=== PATIENT | male | born 1960 | race Caucasian/White ===

== ENCOUNTER 2023-12-27 20:04 | Inpatient (IN) ==
[2023-12-27 20:54] LABS: Basophils # (Auto) 0.02 K/mcL (0.00-0.30); Basophils % (Auto) 0.1 % (0.0-2.0); Eosinophils # (Auto) 0 K/mcL (0.00-0.70); Eosinophils % (Auto) 0 % (0.0-7.0); Hematocrit 47.7 % (40.1-51.0); Hemoglobin 15.2 g/dL (13.7-17.5); Lymphocytes # (Auto) 1.71 K/mcL (1.50-4.80); Lymphocytes % (Auto) 9.4 % (15.5-49.0); Mean Cell Volume 83.2 fL (80.0-100.0); Mean Corpuscular HGB Conc 31.9 g/dL (31.0-36.0); Mean Platelet Volume 10.5 fL (8.8-12.5); Neutrophils % (Auto) 79.2 % (38.0-78.0); Platelet Count 397 K/mcL (140-440); RBC 5.73 M/mcL (4.63-6.08); Red Cell Distribution Width 17.8 % (11.5-14.5); WBC 18.2 K/mcL (4.5-11.0)
[2023-12-27 21:36] LABS: ALT/SGPT 39 U/L (<40); AST/SGOT 63 U/L (<40); Albumin 4.4 gm/dL (3.2-5.2); Albumin/Globulin Ratio 1.2 (1.0-2.3); Alkaline Phosphatase 107 U/L (39-117); Bilirubin,Total 0.8 mg/dL (0.1-1.0); Blood Urea Nitrogen 57 mg/dL (8-23); Calcium 9.4 mg/dL (8.6-10.4); Carbon Dioxide 24 mmol/L (22-30); Chloride 106 mmol/L (96-108); Globulin 3.6 gm/dL (2.2-3.7); Glomerular Filtration Rate 58; Glucose 108 mg/dL (70-105); Potassium 3.5 mmol/L (3.3-5.1); Sodium 148 mmol/L (133-145)
[2023-12-27 21:37] LABS: Thyroid Stimulating Hormone 1.43 uIU/mL (0.27-5.01)
[2023-12-27] MEDS: HALOPERIDOL LACTATE 5 MG/ML VIAL IV ONE (21:58)
[2023-12-27 22:22] LABS: Free T4 (Free Thyroxine) 1.43 ng/dL (0.93-1.70)
[2023-12-28] MEDS: HALOPERIDOL LACTATE 5 MG/ML VIAL IV ONE ×2 (00:08→03:30)
[2023-12-28] MEDS: HALOPERIDOL LACTATE 5 MG/ML VIAL ONE (00:08)
[2023-12-28 00:34] LABS: Alcohol, Blood < 10.1 mg/dL; Alcohol,Blood < 0.010 gm/dL (<0.010)
[2023-12-28 01:03] LABS: Amphetamine Screen,Urine None detected; Barbiturate Screen,Urine None detected; Benzodiazepines Screen,Urine None detected; Cannabinoid Screen,Urine Suspect Positive; Cocaine Screen,Urine None detected; Fentanyl, Urine Screen None Detected; Opiate Screen,Urine None detected; Oxycodone, Urine Screen None detected; Phencyclidine Screen,Urine None detected
[2023-12-28 01:41] LABS: Appearance,Urine CLEAR (Clear); Bilirubin,Urine Negative (Negative); Color,Urine YELLOW; Glucose,Urine (UA) Negative (Negative); Ketones,Urine 20 mg/dL (Negative); Leukocyte Esterase,Urine Negative /uL (Negative); Mucus,Urine FEW /hpf; Nitrate,Urine Negative (Negative); Protein,Urine 100 mg/dL (Negative); Specific Gravity,Urine > 1.060 (1.000-1.035); Urine RBC 4 /hpf (0-3); Urine Squamous Epithelial Cell < 1 /hpf (0-4); Urine WBC 4 /hpf (0-4); Urobilinogen,Urine Negative
[2023-12-28] MEDS: 0.9 % SODIUM CHLORIDE 1,000 ML IV ONE (02:07)
[2023-12-28] MEDS: 0.9 % SODIUM CHLORIDE 1,000 ML IV SCH (03:05)
[2023-12-28] MEDS: OLANZapine 10 MG VIAL IM SCH (03:43)
[2023-12-28 05:43] LABS: Basophils # (Auto) 0.02 K/mcL (0.00-0.30); Basophils % (Auto) 0.1 % (0.0-2.0); Eosinophils # (Auto) 0 K/mcL (0.00-0.70); Eosinophils % (Auto) 0 % (0.0-7.0); Hematocrit 43.8 % (40.1-51.0); Hemoglobin 13.6 g/dL (13.7-17.5); Lymphocytes # (Auto) 1.79 K/mcL (1.50-4.80); Lymphocytes % (Auto) 11.8 % (15.5-49.0); Mean Cell Volume 86.2 fL (80.0-100.0); Mean Corpuscular HGB Conc 31.1 g/dL (31.0-36.0); Mean Platelet Volume 11.2 fL (8.8-12.5); Monocytes # (Auto) 2.05 K/mcL (0.10-0.90); Monocytes % (Auto) 13.5 % (1.0-12.0); Neutrophils % (Auto) 74.3 % (38.0-78.0); Platelet Count 292 K/mcL (140-440); RBC 5.08 M/mcL (4.63-6.08); Red Cell Distribution Width 17.4 % (11.5-14.5); WBC 15.2 K/mcL (4.5-11.0)
[2023-12-28 06:26] LABS: ALT/SGPT 35 U/L (<40); AST/SGOT 61 U/L (<40); Albumin 3.6 gm/dL (3.2-5.2); Albumin/Globulin Ratio 1.2 (1.0-2.3); Alkaline Phosphatase 88 U/L (39-117); Bilirubin,Total 0.7 mg/dL (0.1-1.0); Blood Urea Nitrogen 46 mg/dL (8-23); Calcium 8.1 mg/dL (8.6-10.4); Carbon Dioxide 19 mmol/L (22-30); Chloride 115 mmol/L (96-108); Globulin 2.9 gm/dL (2.2-3.7); Glomerular Filtration Rate 80; Glucose 77 mg/dL (70-105); Potassium 3.8 mmol/L (3.3-5.1); Sodium 149 mmol/L (133-145)
[2023-12-28 06:35] LABS: Appearance,Urine Clear (Clear); Bilirubin,Urine Small mg/dL (Negative); Color,Urine Yellow; Glucose,Urine (UA) Negative (Negative); Ketones,Urine 80 mg/dL (Negative); Leukocyte Esterase,Urine Negative /uL (Negative); Nitrate,Urine Negative (Negative); Protein,Urine 100 mg/dL (Negative); Specific Gravity,Urine 1.015 (1.000-1.035); Urine Blood Large ery/mcL (Negative); Urine Hyaline Cast 2 /lph (0-2); Urine RBC 3 /hpf (0-3); Urine Squamous Epithelial Cell 0 /hpf (0-4); Urine WBC 0 /hpf (0-4); Urobilinogen,Urine Normal
[2023-12-28] MEDS: LACTATED RINGERS 1,000 ML IV ONE (06:47)
[2023-12-28] MEDS: LACTATED RINGERS 1,000 ML IV SCH (07:48)
[2023-12-28 09:00] LABS: Lymphocytes % 11 % (15-49); Monocytes % (Manual) 10 % (1-12); Platelet Estimate NORMAL (Normal); RBC Morphology NORMAL (Normal); Segmented Neutrophils % 79 % (38-78)
[2023-12-28] MEDS ORDERED: POTASSIUM CHLORIDE 40 MEQ in DEXTROSE 5% IN WATER 500 ML IV PRN (09:27)
[2023-12-28] MEDS ORDERED: MAGNESIUM SULFATE 2 GM/50 ML BAG IV PRN (09:27)
[2023-12-28] MEDS ORDERED: POLYETHYLENE GLYCOL 3350 17 GM PACKET PO PRN (09:27)
[2023-12-28] MEDS ORDERED: SENNOSIDES 1 TABLET PO PRN (09:27)
[2023-12-28] MEDS ORDERED: POTASSIUM CHLORIDE 20 MEQ TABLET PO PRN (09:27)
[2023-12-28] MEDS: DEXTROSE 5% IN WATER 1,000 ML IV ONE (10:23)
[2023-12-28] MEDS: LORazepam 2 MG/ML VIAL IV PRN (11:20)
[2023-12-28 16:29] LABS: Anion Gap 12.8 (8.0-16.0); Blood Urea Nitrogen 33 mg/dL (8-23); Calcium 8.2 mg/dL (8.6-10.4); Carbon Dioxide 22 mmol/L (22-30); Chloride 114 mmol/L (96-108); Glomerular Filtration Rate 91; Glucose 95 mg/dL (70-105); Potassium 3.4 mmol/L (3.3-5.1); Sodium 148 mmol/L (133-145)
[2023-12-28] MEDS: DOCUSATE SODIUM 100 MG CAPSULE PO SCH (20:05)
[2023-12-28] MEDS: OLANZapine 5 MG TABLET PO PRN (21:01)
[2023-12-28] MEDS: DEXTROSE 5%-1/2NS W/20MEQ KCL 1,000 ML IV SCH (21:01)
[2023-12-28] MEDS: VANCOMYCIN 125 MG CAPSULE PO ONE (21:36)
[2023-12-29] MEDS ORDERED: VANCOMYCIN 125 MG CAPSULE PO SCH
[2023-12-29] MEDS: ONDANSETRON 4 MG/2 ML VIAL IV PRN (00:44)
[2023-12-29] MEDS: METOCLOPRAMIDE 10 MG/2 ML VIAL IV PRN (02:40)
[2023-12-29] MEDS: VANCOMYCIN 125 MG CAPSULE PO SCH (02:48)
[2023-12-29] MEDS: ACETAMINOPHEN 1,000 MG/100 ML BAG IV ONE (03:00)
[2023-12-29] MEDS: ACETAMINOPHEN 650 MG/65 ML BAG IV PRN (03:57)
[2023-12-29] MEDS: PROCHLORPERAZINE 10 MG/2 ML VIAL IV PRN ×2 (04:36→12:23)
[2023-12-29 06:09] LABS: Basophils # (Auto) 0.04 K/mcL (0.00-0.30); Basophils % (Auto) 0.2 % (0.0-2.0); Eosinophils # (Auto) 0.03 K/mcL (0.00-0.70); Eosinophils % (Auto) 0.1 % (0.0-7.0); Hematocrit 41.8 % (40.1-51.0); Hemoglobin 13.4 g/dL (13.7-17.5); Lymphocytes # (Auto) 1.21 K/mcL (1.50-4.80); Lymphocytes % (Auto) 5.1 % (15.5-49.0); Mean Cell Volume 83.4 fL (80.0-100.0); Mean Corpuscular HGB Conc 32.1 g/dL (31.0-36.0); Mean Platelet Volume 11.4 fL (8.8-12.5); Monocytes # (Auto) 2.06 K/mcL (0.10-0.90); Monocytes % (Auto) 8.6 % (1.0-12.0); Neutrophils % (Auto) 85.7 % (38.0-78.0); Platelet Count 304 K/mcL (140-440); RBC 5.01 M/mcL (4.63-6.08); Red Cell Distribution Width 17.1 % (11.5-14.5); WBC 23.9 K/mcL (4.5-11.0)
[2023-12-29 07:00] LABS: ALT/SGPT 44 U/L (<40); AST/SGOT 56 U/L (<40); Albumin 3.4 gm/dL (3.2-5.2); Albumin/Globulin Ratio 1.3 (1.0-2.3); Alkaline Phosphatase 83 U/L (39-117); Bilirubin,Direct 0.3 mg/dL (<0.3); Bilirubin,Total 0.8 mg/dL (0.1-1.0); Blood Urea Nitrogen 22 mg/dL (8-23); Calcium 8.1 mg/dL (8.6-10.4); Carbon Dioxide 22 mmol/L (22-30); Chloride 106 mmol/L (96-108); Globulin 2.7 gm/dL (2.2-3.7); Glomerular Filtration Rate 101; Glucose 166 mg/dL (70-105); Lactate Dehydrogenase 234 U/L (135-225); Phosphorous 2.1 mg/dL (2.5-4.5); Potassium 3.2 mmol/L (3.3-5.1); Sodium 138 mmol/L (133-145); Triglycerides 137 mg/dL (<150); Uric Acid 5.1 mg/dL (2.5-8.0)
[2023-12-29] MEDS ORDERED: IOPAMIDOL 100 ML BOTTLE IV ONE (10:44)
[2023-12-29] MEDS: ENOXAPARIN 40 MG/0.4 ML SYRINGE SQ SCH (10:59)
[2023-12-29] MEDS: PANTOPRAZOLE 40 MG VIAL IV SCH (11:00)
[2023-12-29] MEDS: DEXTROSE 5%-1/2NS W/10MEQ KCL 1,000 ML IV SCH (12:21)
[2023-12-29] MEDS: metroNIDAZOLE 500 MG/100 ML BAG IV SCH (14:17)
[2023-12-29] MEDS: cefTRIAXone 2 GM in DEXTROSE 5% IN WATER 50 ML IV SCH (14:17)
[2023-12-29 16:03] LABS: ABG Methemoglobin 0.3 % (0.4-1.5); Total Hemoglobin 14.8 gm/Dl (13.5-16.5); VBG Base Excess 0 (-2-3); VBG HCO3 23.4 mmol/L (24.0-28.0); VBG Oxygen Saturation 84.7 % (40.0-70.0); VBG PCO2 33.9 mmHg (41.0-51.0); VBG PH 7.46 U (7.32-7.42); VBG PO2 52.2 mmHg (25.0-40.0); VBG Total CO2 24.4 mmol/L (25.0-29.0)
[2023-12-29] MEDS: Fluticasone Furoate-Vilanterol [Breo Ellipta] 200 INH SCH (17:23)
[2023-12-29] MEDS ORDERED: ENALAPRILAT 1.25 MG/ML VIAL IV PRN (17:37)
[2023-12-29] MEDS: TAMSULOSIN 0.4 MG CAPSULE PO SCH (20:25)
[2023-12-29] MEDS: buPROPion 100 MG TAB.SR.12H PO SCH (20:27)
[2023-12-29] MEDS: ACETAMINOPHEN 1,000 MG/100 ML BAG IV PRN (23:42)
[2023-12-30] MEDS: CETIRIZINE 10 MG TABLET PO SCH (08:36)
[2023-12-30 08:46] LABS: ALT/SGPT 54 U/L (<40); AST/SGOT 42 U/L (<40); Albumin 3.1 gm/dL (3.2-5.2); Albumin/Globulin Ratio 1.3 (1.0-2.3); Alkaline Phosphatase 78 U/L (39-117); Bilirubin,Direct 0.4 mg/dL (<0.3); Bilirubin,Total 0.8 mg/dL (0.1-1.0); Blood Urea Nitrogen 10 mg/dL (8-23); Calcium 7.8 mg/dL (8.6-10.4); Carbon Dioxide 21 mmol/L (22-30); Chloride 106 mmol/L (96-108); Globulin 2.3 gm/dL (2.2-3.7); Glomerular Filtration Rate 107; Glucose 127 mg/dL (70-105); Lactate Dehydrogenase 277 U/L (135-225); Phosphorous 2.3 mg/dL (2.5-4.5); Sodium 137 mmol/L (133-145); Triglycerides 105 mg/dL (<150); Uric Acid 3.3 mg/dL (2.5-8.0)
[2023-12-30 08:47] LABS: Basophils # (Auto) 0.03 K/mcL (0.00-0.30); Basophils % (Auto) 0.2 % (0.0-2.0); Eosinophils # (Auto) 0.21 K/mcL (0.00-0.70); Eosinophils % (Auto) 1.3 % (0.0-7.0); Hematocrit 36.6 % (40.1-51.0); Hemoglobin 11.9 g/dL (13.7-17.5); Lymphocytes # (Auto) 1.56 K/mcL (1.50-4.80); Lymphocytes % (Auto) 9.5 % (15.5-49.0); Mean Cell Volume 82.6 fL (80.0-100.0); Mean Corpuscular HGB Conc 32.5 g/dL (31.0-36.0); Monocytes # (Auto) 1.29 K/mcL (0.10-0.90); Monocytes % (Auto) 7.9 % (1.0-12.0); Neutrophils % (Auto) 80.6 % (38.0-78.0); Platelet Count 229 K/mcL (140-440); RBC 4.43 M/mcL (4.63-6.08); Red Cell Distribution Width 16.7 % (11.5-14.5); WBC 16.4 K/mcL (4.5-11.0)
[2023-12-30] MEDS ORDERED: TADALAFIL 5 MG PO SCH (09:00)
[2023-12-30] MEDS: POTASSIUM CHLORIDE 20 MEQ PACKET PO SCH (10:34)
[2023-12-30] MEDS: NICOTINE 21 MG PATCH TOPICAL SCH (10:35)
[2023-12-30] MEDS: OMEPRAZOLE 20 MG CAPSULE PO SCH (16:59)
[2023-12-30] MEDS: MELATONIN 3 MG TABLET PO PRN (20:04)
[2023-12-30] MEDS: 0.9 % SODIUM CHLORIDE 10 ML SYRINGE IV SCH (21:21)
[2023-12-30] MEDS: ACETAMINOPHEN 500 MG TABLET PO PRN (22:50)
[2023-12-31] MEDS: ACETAMINOPHEN 500 MG TABLET PO ONE (00:09)
[2023-12-31 06:09] LABS: Basophils # (Auto) 0.06 K/mcL (0.00-0.30); Basophils % (Auto) 0.5 % (0.0-2.0); Eosinophils # (Auto) 0.37 K/mcL (0.00-0.70); Eosinophils % (Auto) 2.9 % (0.0-7.0); Hematocrit 38.4 % (40.1-51.0); Hemoglobin 12.5 g/dL (13.7-17.5); Lymphocytes # (Auto) 1.78 K/mcL (1.50-4.80); Lymphocytes % (Auto) 14.1 % (15.5-49.0); Mean Cell Volume 82.2 fL (80.0-100.0); Mean Corpuscular HGB Conc 32.6 g/dL (31.0-36.0); Mean Platelet Volume 11.3 fL (8.8-12.5); Monocytes # (Auto) 1.25 K/mcL (0.10-0.90); Monocytes % (Auto) 9.9 % (1.0-12.0); Neutrophils % (Auto) 71.7 % (38.0-78.0); Platelet Count 232 K/mcL (140-440); RBC 4.67 M/mcL (4.63-6.08); Red Cell Distribution Width 17.1 % (11.5-14.5); WBC 12.6 K/mcL (4.5-11.0)
[2023-12-31 06:11] LABS: ALT/SGPT 43 U/L (<40); AST/SGOT 27 U/L (<40); Albumin 3.1 gm/dL (3.2-5.2); Albumin/Globulin Ratio 1.3 (1.0-2.3); Alkaline Phosphatase 78 U/L (39-117); Bilirubin,Direct 0.3 mg/dL (<0.3); Bilirubin,Total 0.5 mg/dL (0.1-1.0); Blood Urea Nitrogen 12 mg/dL (8-23); Calcium 8.1 mg/dL (8.6-10.4); Carbon Dioxide 20 mmol/L (22-30); Chloride 106 mmol/L (96-108); Globulin 2.4 gm/dL (2.2-3.7); Glomerular Filtration Rate 91; Glucose 105 mg/dL (70-105); Lactate Dehydrogenase 166 U/L (135-225); Potassium 3.1 mmol/L (3.3-5.1); Sodium 137 mmol/L (133-145); Triglycerides 97 mg/dL (<150); Uric Acid 4.1 mg/dL (2.5-8.0)
[2023-12-31] MEDS: POTASSIUM CHLORIDE 20 MEQ TABLET PO PRN (06:17)
[2023-12-31] MEDS ORDERED: PHENobarb/HYOSCY/ATROPINE/SCOP 1 DOSE BOTTLE PO PRN (09:47)
[2023-12-31] MEDS ORDERED: MAG HYDROX/AL HYDROX/SIMETH 30 ML ORAL.SUSP PO PRN (12:50)
[2023-12-31] MEDS: POTASSIUM CHLORIDE 20 MEQ PACKET PO SCH (16:57)
[2023-12-31] MEDS: IPRATROPIUM/ALBUTEROL 3 ML AMPUL.NEB NEB PRN (18:31)
[2024-01-01 06:32] LABS: Basophils # (Auto) 0.09 K/mcL (0.00-0.30); Basophils % (Auto) 0.7 % (0.0-2.0); Eosinophils # (Auto) 0.41 K/mcL (0.00-0.70); Eosinophils % (Auto) 3.1 % (0.0-7.0); Hemoglobin 13.1 g/dL (13.7-17.5); Lymphocytes # (Auto) 1.98 K/mcL (1.50-4.80); Lymphocytes % (Auto) 14.9 % (15.5-49.0); Mean Cell Volume 82.8 fL (80.0-100.0); Mean Platelet Volume 11.4 fL (8.8-12.5); Monocytes # (Auto) 1.19 K/mcL (0.10-0.90); Neutrophils % (Auto) 70.8 % (38.0-78.0); Platelet Count 251 K/mcL (140-440); RBC 4.95 M/mcL (4.63-6.08); Red Cell Distribution Width 18.2 % (11.5-14.5); WBC 13.3 K/mcL (4.5-11.0)
[2024-01-01 07:03] LABS: ALT/SGPT 43 U/L (<40); AST/SGOT 46 U/L (<40); Albumin 3.3 gm/dL (3.2-5.2); Albumin/Globulin Ratio 1.3 (1.0-2.3); Alkaline Phosphatase 79 U/L (39-117); Bilirubin,Direct 0.2 mg/dL (<0.3); Bilirubin,Total 0.4 mg/dL (0.1-1.0); Blood Urea Nitrogen 13 mg/dL (8-23); Calcium 8.3 mg/dL (8.6-10.4); Carbon Dioxide 18 mmol/L (22-30); Chloride 107 mmol/L (96-108); Globulin 2.5 gm/dL (2.2-3.7); Glomerular Filtration Rate 95; Glucose 103 mg/dL (70-105); Lactate Dehydrogenase 200 U/L (135-225); Phosphorous 2.7 mg/dL (2.5-4.5); Potassium 3.5 mmol/L (3.3-5.1); Sodium 138 mmol/L (133-145); Triglycerides 97 mg/dL (<150); Uric Acid 5.1 mg/dL (2.5-8.0)
[2024-01-01] MEDS ORDERED: IOPAMIDOL 100 ML BOTTLE IV ONE (08:15)
== END 2024-01-01 11:05 | disposition home health service (06) | DRG 371 ==
LOC: ED 20:04 → ICU 12-28 08:34 → MEDSUR 12-31 11:27
PROVIDERS: ADMIT Internal Medicine; ATTEND Internal Medicine

== ENCOUNTER 2024-01-06 11:52 | Inpatient (IN) ==
[2024-01-06] MEDS ORDERED: IOPAMIDOL 100 ML BOTTLE IV ONE ×2 (11:53)
[2024-01-06] MEDS: FAMOTIDINE/PF 20 MG/2 ML VIAL IV ONE (12:34)
[2024-01-06] MEDS: ONDANSETRON 4 MG/2 ML VIAL IV ONE ×2 (12:35→14:34)
[2024-01-06] MEDS: 0.9 % SODIUM CHLORIDE 1,000 ML IV ONE (12:35)
[2024-01-06 13:31] LABS: ALT/SGPT 49 U/L (<40); AST/SGOT 43 U/L (<40); Albumin/Globulin Ratio 1.3 (1.0-2.3); Alkaline Phosphatase 101 U/L (39-117); Bilirubin,Total 0.6 mg/dL (0.1-1.0); Blood Urea Nitrogen 13 mg/dL (8-23); Calcium 9.4 mg/dL (8.6-10.4); Carbon Dioxide 28 mmol/L (22-30); Chloride 89 mmol/L (96-108); Globulin 3.2 gm/dL (2.2-3.7); Glomerular Filtration Rate 91; Glucose 164 mg/dL (70-105); Potassium 2.9 mmol/L (3.3-5.1); Sodium 133 mmol/L (133-145)
[2024-01-06 13:32] LABS: Basophils # (Auto) 0.04 K/mcL (0.00-0.30); Basophils % (Auto) 0.2 % (0.0-2.0); Eosinophils # (Auto) 0.07 K/mcL (0.00-0.70); Eosinophils % (Auto) 0.3 % (0.0-7.0); Hematocrit 48.2 % (40.1-51.0); Hemoglobin 15.8 g/dL (13.7-17.5); Lymphocytes # (Auto) 1.91 K/mcL (1.50-4.80); Lymphocytes % (Auto) 7.9 % (15.5-49.0); Mean Corpuscular HGB Conc 32.8 g/dL (31.0-36.0); Monocytes # (Auto) 2.14 K/mcL (0.10-0.90); Monocytes % (Auto) 8.9 % (1.0-12.0); Neutrophils % (Auto) 82.2 % (38.0-78.0); Platelet Count 388 K/mcL (140-440); RBC 5.88 M/mcL (4.63-6.08); Red Cell Distribution Width 18.4 % (11.5-14.5); WBC 24.1 K/mcL (4.5-11.0)
[2024-01-06] MEDS: POTASSIUM CHLORIDE 10 MEQ/100 ML BAG IV ONE (15:20)
[2024-01-06 16:28] LABS: Appearance,Urine Clear (Clear); Bilirubin,Urine Negative (Negative); Color,Urine Yellow; Glucose,Urine (UA) Negative (Negative); Ketones,Urine Negative (Negative); Leukocyte Esterase,Urine Negative /uL (Negative); Nitrate,Urine Negative (Negative); PH,Urine 7.5 (5.0-9.0); Protein,Urine Negative (Negative); Specific Gravity,Urine 1.015 (1.000-1.035); Urine Blood Trace-intact ery/mcL (Negative); Urine RBC 1 /hpf (0-3); Urine Squamous Epithelial Cell 0 /hpf (0-4); Urine WBC 1 /hpf (0-4); Urobilinogen,Urine Normal
[2024-01-06] MEDS ORDERED: IPRATROPIUM/ALBUTEROL 3 ML AMPUL.NEB NEB PRN (21:07)
[2024-01-06 22:00] LABS: Potassium 3.1 mmol/L (3.3-5.1)
[2024-01-06] MEDS: metroNIDAZOLE 500 MG TABLET PO SCH (22:23)
[2024-01-06] MEDS: VANCOMYCIN 125 MG CAPSULE PO SCH (22:41)
[2024-01-06] MEDS: metroNIDAZOLE 500 MG/100 ML BAG IV SCH (22:41)
[2024-01-06] MEDS: 0.9 % SODIUM CHLORIDE 1,000 ML IV SCH (22:41)
[2024-01-06] MEDS: HEPARIN 5,000 UNIT/ML VIAL SQ SCH (22:41)
[2024-01-06] MEDS: 0.9 % SODIUM CHLORIDE 10 ML SYRINGE IV SCH (22:41)
[2024-01-06] MEDS: POTASSIUM CHLORIDE 20 MEQ PACKET PO ONE (23:05)
[2024-01-06] MEDS: POTASSIUM CHLORIDE 20 MEQ PACKET ONE (23:44)
[2024-01-07 07:45] LABS: Basophils # (Auto) 0.08 K/mcL (0.00-0.30); Basophils % (Auto) 0.5 % (0.0-2.0); Eosinophils # (Auto) 0.12 K/mcL (0.00-0.70); Eosinophils % (Auto) 0.8 % (0.0-7.0); Hematocrit 39.2 % (40.1-51.0); Hemoglobin 12.7 g/dL (13.7-17.5); Lymphocytes # (Auto) 1.95 K/mcL (1.50-4.80); Lymphocytes % (Auto) 12.4 % (15.5-49.0); Mean Cell Volume 83.6 fL (80.0-100.0); Mean Corpuscular HGB Conc 32.4 g/dL (31.0-36.0); Mean Platelet Volume 12.6 fL (8.8-12.5); Monocytes # (Auto) 1.47 K/mcL (0.10-0.90); Monocytes % (Auto) 9.3 % (1.0-12.0); Neutrophils % (Auto) 76.6 % (38.0-78.0); Platelet Count 305 K/mcL (140-440); RBC 4.69 M/mcL (4.63-6.08); Red Cell Distribution Width 18.1 % (11.5-14.5); WBC 15.7 K/mcL (4.5-11.0)
[2024-01-07] MEDS: PANTOPRAZOLE 40 MG TABLET PO SCH (08:45)
[2024-01-07 10:46] LABS: ALT/SGPT 38 U/L (<40); AST/SGOT 33 U/L (<40); Albumin 2.9 gm/dL (3.2-5.2); Albumin/Globulin Ratio 1.2 (1.0-2.3); Alkaline Phosphatase 75 U/L (39-117); Bilirubin,Direct 0.2 mg/dL (<0.3); Bilirubin,Total 0.5 mg/dL (0.1-1.0); Blood Urea Nitrogen 10 mg/dL (8-23); Calcium 7.9 mg/dL (8.6-10.4); Carbon Dioxide 24 mmol/L (22-30); Chloride 100 mmol/L (96-108); Globulin 2.5 gm/dL (2.2-3.7); Glomerular Filtration Rate 95; Glucose 85 mg/dL (70-105); Lactate Dehydrogenase 176 U/L (135-225); Phosphorous 2.6 mg/dL (2.5-4.5); Potassium 2.8 mmol/L (3.3-5.1); Sodium 134 mmol/L (133-145); Triglycerides 120 mg/dL (<150); Uric Acid 5.6 mg/dL (2.5-8.0)
[2024-01-07] MEDS: POTASSIUM CHLORIDE 40 MEQ in DEXTROSE 5% IN WATER 500 ML IV ONE (11:05)
[2024-01-07] MEDS: POTASSIUM CHLORIDE 20 MEQ PACKET PO ONE ×2 (11:41→20:48)
[2024-01-07] MEDS: POTASSIUM CHLORIDE 10 MEQ/100 ML BAG IV SCH (11:42)
[2024-01-07] MEDS: ACETAMINOPHEN 325 MG TABLET PO PRN (13:35)
[2024-01-07 18:53] LABS: Potassium 3.1 mmol/L (3.3-5.1)
[2024-01-07] MEDS: buPROPion 100 MG TAB.SR.12H PO SCH (20:44)
[2024-01-07] MEDS: GABAPENTIN 300 MG CAPSULE PO SCH (20:44)
[2024-01-07] MEDS: TAMSULOSIN 0.4 MG CAPSULE PO SCH (20:44)
[2024-01-08 06:54] LABS: Basophils # (Auto) 0.06 K/mcL (0.00-0.30); Basophils % (Auto) 0.5 % (0.0-2.0); Eosinophils # (Auto) 0.18 K/mcL (0.00-0.70); Eosinophils % (Auto) 1.5 % (0.0-7.0); Hematocrit 35.5 % (40.1-51.0); Hemoglobin 11.7 g/dL (13.7-17.5); Lymphocytes # (Auto) 1.54 K/mcL (1.50-4.80); Lymphocytes % (Auto) 13.1 % (15.5-49.0); Mean Cell Volume 83.9 fL (80.0-100.0); Mean Platelet Volume 11.7 fL (8.8-12.5); Monocytes # (Auto) 0.96 K/mcL (0.10-0.90); Monocytes % (Auto) 8.2 % (1.0-12.0); Neutrophils % (Auto) 75.9 % (38.0-78.0); Platelet Count 272 K/mcL (140-440); RBC 4.23 M/mcL (4.63-6.08); Red Cell Distribution Width 18.3 % (11.5-14.5); WBC 11.8 K/mcL (4.5-11.0)
[2024-01-08] MEDS: hydrOXYzine 25 MG TABLET PO PRN (07:32)
[2024-01-08 07:33] LABS: ALT/SGPT 35 U/L (<40); AST/SGOT 33 U/L (<40); Albumin 2.8 gm/dL (3.2-5.2); Albumin/Globulin Ratio 1.2 (1.0-2.3); Alkaline Phosphatase 69 U/L (39-117); Bilirubin,Direct 0.2 mg/dL (<0.3); Bilirubin,Total 0.4 mg/dL (0.1-1.0); Blood Urea Nitrogen 9 mg/dL (8-23); Calcium 7.7 mg/dL (8.6-10.4); Carbon Dioxide 19 mmol/L (22-30); Chloride 103 mmol/L (96-108); Globulin 2.3 gm/dL (2.2-3.7); Glomerular Filtration Rate 95; Glucose 99 mg/dL (70-105); Lactate Dehydrogenase 161 U/L (135-225); Phosphorous 2.4 mg/dL (2.5-4.5); Potassium 3.3 mmol/L (3.3-5.1); Sodium 134 mmol/L (133-145); Triglycerides 103 mg/dL (<150); Uric Acid 5.3 mg/dL (2.5-8.0)
[2024-01-08] MEDS: FLUTICASONE PROPIONATE SPRAY.NAS NS SCH (08:47)
[2024-01-08] MEDS: Fluticasone Furoate-Vilanterol [Breo Ellipta] 200/5 mcg Inhaler INH SCH (08:47)
[2024-01-08] MEDS ORDERED: POTASSIUM PHOSPHATE 40 MEQ in DEXTROSE 5% IN WATER 500 ML IV SCH (14:00)
[2024-01-08] MEDS: metroNIDAZOLE 500 MG TABLET PO SCH (14:08)
[2024-01-08] MEDS: POTASSIUM PHOSPHATE 40 MEQ in 0.9 % SODIUM CHLORIDE 500 ML IV SCH (14:14)
[2024-01-08] MEDS: ONDANSETRON 4 MG/2 ML VIAL IV PRN (14:14)
[2024-01-08] MEDS: MAG HYDROX/AL HYDROX/SIMETH 30 ML ORAL.SUSP PO SCH (16:01)
[2024-01-08] MEDS: CALCIUM CARBONATE 500 MG TAB.CHEW CHEWED SCH (20:31)
[2024-01-08] MEDS: PANTOPRAZOLE 40 MG TABLET PO SCH (20:31)
[2024-01-08] MEDS: PHENobarb/HYOSCY/ATROPINE/SCOP 1 DOSE BOTTLE PO ONE (21:03)
[2024-01-09 06:30] LABS: Basophils # (Auto) 0.06 K/mcL (0.00-0.30); Basophils % (Auto) 0.6 % (0.0-2.0); Eosinophils # (Auto) 0.16 K/mcL (0.00-0.70); Eosinophils % (Auto) 1.5 % (0.0-7.0); Hematocrit 34.8 % (40.1-51.0); Hemoglobin 11.5 g/dL (13.7-17.5); Lymphocytes % (Auto) 7.6 % (15.5-49.0); Mean Cell Volume 82.5 fL (80.0-100.0); Mean Platelet Volume 12.6 fL (8.8-12.5); Monocytes # (Auto) 0.66 K/mcL (0.10-0.90); Monocytes % (Auto) 6.3 % (1.0-12.0); Neutrophils % (Auto) 83.5 % (38.0-78.0); Platelet Count 252 K/mcL (140-440); RBC 4.22 M/mcL (4.63-6.08); Red Cell Distribution Width 18.2 % (11.5-14.5); WBC 10.5 K/mcL (4.5-11.0)
[2024-01-09 07:15] LABS: ALT/SGPT 30 U/L (<40); AST/SGOT 26 U/L (<40); Albumin 2.9 gm/dL (3.2-5.2); Albumin/Globulin Ratio 1.3 (1.0-2.3); Alkaline Phosphatase 69 U/L (39-117); Bilirubin,Direct 0.2 mg/dL (<0.3); Bilirubin,Total 0.4 mg/dL (0.1-1.0); Blood Urea Nitrogen 5 mg/dL (8-23); Calcium 7.9 mg/dL (8.6-10.4); Carbon Dioxide 21 mmol/L (22-30); Chloride 101 mmol/L (96-108); Globulin 2.3 gm/dL (2.2-3.7); Glomerular Filtration Rate 95; Glucose 90 mg/dL (70-105); Lactate Dehydrogenase 248 U/L (135-225); Phosphorous 2.5 mg/dL (2.5-4.5); Potassium 3.3 mmol/L (3.3-5.1); Sodium 133 mmol/L (133-145); Triglycerides 87 mg/dL (<150); Uric Acid 5.3 mg/dL (2.5-8.0)
[2024-01-09] MEDS: POTASSIUM CHLORIDE 20 MEQ PACKET PO ONE (09:06)
[2024-01-09] MEDS: PANTOPRAZOLE 40 MG TABLET PO SCH (09:06)
== END 2024-01-09 10:03 | disposition home health service (06) | DRG 372 ==
LOC: ED 11:52 → MEDSUR 20:52
PROVIDERS: ADMIT Student in an Organized Health Care Education/Training Program; ATTEND Student in an Organized Health Care Education/Training Program